=== PATIENT | male | born 1960 | race Two or more races ===

== ENCOUNTER 2019-03-28 18:54 | Emergency (ER) | payer BC ==
[2019-03-28 19:02] VITALS: TEMP 97.9
[2019-03-28] MEDS ORDERED: KETOROLAC 30 MG/ML 1 ML VIAL IM STA (19:05)
[2019-03-28] MEDS ORDERED: HYDROmorphone 1 MG/ML 1 ML SYRINGE IM STA (19:05)
[2019-03-28 19:27] VITALS: RESP 18
--- NOTE | 2019-03-28 19:39 | ED ---
Extremity Problem HPI - General Source: patient Mode of arrival: wheelchair Limitations: no limitations <Cristiane Carter - Last Filed: 03/28/19 20:37> <Natalie Moya - Last Filed: 03/30/19 01:02> - General Chief complaint: Extremity Problem,Nontraumatic Stated complaint: Rt knee injury Time Seen by Provider: 03/28/19 19:02 - History of Present Illness Initial comments: 58-year-old male patient presents to the emergency department today for evaluation of right knee pain. Patient states that he was resting and went to get up when he had sudden onset pain to the right knee. Patient states he also developed significant swelling. Patient states the pain is quite severe. Denies any fever or chills. Denies any redness over the knee. Denies any known injury. Denies previous injury or surgery to the knee. Patient denies any recent rash, shortness breath, chest pain, abdominal pain, nausea, vomiting, d iarrhea, constipation, back pain, numbness, tingling, dizziness, weakness, hematuria, dysuria, urinary urgency, urinary frequency, headache, visual changes, or any other complaints. (Cristiane Carter) - Related Data Previous Rx's Medication Instructions Recorded Hydrocodone/Acetaminophen [Mcdonough 1 tab PO Q6HR PRN #12 tab 03/28/19 5-325] Ibuprofen [Motrin] 600 mg PO Q8HR PRN #30 tab 03/28/19 Allergies Allergy/AdvReac Type Severity Reaction Status Date / Time No Known Allergies Allergy Verified 03/28/19 19:02 Review of Systems ROS Other: All systems not noted in ROS Statement are negative. <Cristiane Carter - Last Filed: 03/28/19 20:37> ROS Other: All systems not noted in ROS Statement are negative. <Natalie Moya - Last Filed: 03/30/19 01:02> ROS Statement: Those systems with pertinent positive or pertinent negative responses have been documented in the HPI. Past Medical History Past Medical History: Atrial Fibrillation, Heart Failure, Hypertension History of Any Multi-Drug Resistant Organisms: None Reported Past Surgical History: Joint Replacement Past Psychological History: Depression Smoking Status: Never smoker Past Alcohol Use History: Occasional Past Drug Use History: Marijuana <Cristiane Carter - Last Filed: 03/28/19 20:37> General Exam Limitations: no limitations General appearance: alert, in no apparent distress, other (This is a well- developed, well-nourished adult male patient in mild distress related to pain. Vital signs upon presentation are temperature 97.9F, pulse 55, respirations 18, blood pressure 176/104, pulse ox 98% on room air.) Eye exam: Present: normal appearance, PERRL, EOMI. Absent: scleral icterus, conjunctival injection, periorbital swelling ENT exam: Present: normal exam, normal oropharynx, mucous membranes moist Respiratory exam: Present: normal lung sounds bilaterally. Absent: respiratory distress, wheezes, rales, rhonchi, stridor Cardiovascular Exam: Present: regular rate, normal rhythm, normal heart sounds. Absent: systolic murmur, diastolic murmur, rubs, gallop, clicks Extremities exam: Present: full ROM, tenderness (Superior anterior right knee tenderness), normal capillary refill, joint swelling (Right knee), other (Skin to the right lower extremities pink, warm, dry. Cap refills less than 3 seconds. Pedal and posttibial pulses 2+ and equal bilaterally.). Absent: normal inspection, pedal edema, calf tenderness Neurological exam: Present: alert, oriented X3, CN II-XII intact Psychiatric exam: Present: normal affect, normal mood Skin exam: Present: warm, dry, intact, normal color. Absent: rash <Cristiane Carter - Last Filed: 03/28/19 20:37> Course Vital Signs 03/28/19 03/28/19 03/28/19 18:58 19:50 20:45 Temperature 97.9 F 97.9 F Pulse Rate 65 70 77 Respiratory 18 18 18 Rate Blood Pressure 176/104 168/100 154/99 O2 Sat by Pulse 98 95 94 L Oximetry Medical Decision Making - Radiology Data Radiology results: report reviewed, image reviewed <Cristiane Carter - Last Filed: 03/28/19 20:37> <Natalie Moya - Last Filed: 03/30/19 01:02> - Medical Decision Making 58-year-old male patient presents to the emergency department today for evaluation of right knee pain. Patient did have some surrounding knee tenderness. No erythema or warmth noted. No calf pain or tenderness. X-ray was obtained and did show small knee joint effusion. Patient has tenderness over the anterior knee. Did discuss findings and results with the patient. Did discuss possibility of tendon or meniscus injury. He was placed in an Brett wrap. Given prescription for Mcdonough and ibuprofen. He'll be discharged to follow-up with his primary care physician blood bank specialist for further evaluation. He is from the [facility] and will be seeking orthopedic care near his home. Return parameters were discussed in detail. He verbalizes understanding and agrees with this plan. (Cristiane Carter) I was available for consultation in the emergency department. The history and physical exam were done by the midlevel provider. I was consulted for this patients care. I reviewed the case with the midlevel provider and based on their presentation of the patient, I agree with the assessment, medical decision making and plan of care as documented. Chart was dictated using [employer] dictation software. Attempts were made to correct any dictation errors however some typographical errors may persist. (Natalie Moya) - Radiology Data 3 views of the right knee are obtained. Report was reviewed in its entirety. Impression by Dr. Antonia Suresh shows small joint effusion. Osteoarthritis. (Cristiane Carter) Disposition Is patient prescribed a controlled substance at d/c from ED?: Yes When asked, does pt state using other controlled substances?: Yes If prescribed controlled substance>3 days was MAPS reviewed?: Prescribed <3 Days If opioid is for acute pain is fill amount 7 days or less?: Yes If Rx opioid, was Start Talking consent form obtained?: Yes Time of Disposition: 20:33 <Cristiane Carter - Last Filed: 03/28/19 20:37> <Natalie Moya - Last Filed: 03/30/19 01:02> Clinical Impression: Effusion, right knee, Right knee pain Disposition: HOME SELF-CARE Condition: Good Instructions (If sedation given, give patient instructions): Swollen Knee Joint (ED), Knee Pain (ED) Additional Instructions: Use Brett wrap for comfort and support. Take pain medication sparingly for pain. Take anti-inflammatory on schedule with meals. Follow-up with an blood bank specialist for further evaluation as it is possible. Follow up with her primary care physician for recheck in 1-2 days. Return to the emergency department immediately for any new, worsening, or concerning symptoms. Prescriptions: Ibuprofen [Motrin] 600 mg PO Q8HR PRN #30 tab PRN Reason: Pain Hydrocodone/Acetaminophen [Mcdonough 5-325] 1 tab PO Q6HR PRN #12 tab PRN Reason: Pain Referrals: Nonstaff,Physician [Primary Care Provider] - 1-2 days
--- NOTE | 2019-03-28 19:49 | XR ---
PROCEDURE: XR knee complete RT - 3V DATE AND TIME: 03/28/2019 7:36 PM CLINICAL INDICATION: PHH; pain; swelling; no injury TECHNIQUE: Department protocol COMPARISON: None FINDINGS: There is a small joint effusion noted within the suprapatellar bursa. Otherwise, the soft t issues are unremarkable. There is no fracture or malalignment. Osteophytic spurring and joint space narrowing involves the anterior compartment of to a moderate deg ree, and the medial compartment and upper tibia-fibular joint to a mild degree. IMPRESSION: 1. Small joint effusion. 2. Osteoarthritis.
[2019-03-28 20:46] VITALS: BP 154/99; PULSE 77
== END 2019-03-28 20:45 | disposition home or self-care (01) ==
LOC: EC 18:54
DX: M25.461 Effusion, right knee (principal); M25.561 Pain in right knee; Z96.698 Presence of other orthopedic joint implants
CPT/HCPCS: 73562; 99283; 96372 ×2; J1885; J1170